=== PATIENT | male | born 1960 | race Hispanic/Latino ===

== ENCOUNTER 2018-03-08 05:48 | Day surgery (SDC) | payer BC ==
[2018-03-08] MEDS ORDERED: ANCEF/STERILE WATER 2 GM/20 ML 2 GM/20 ML SYRINGE IV NR (06:00)
[2018-03-08] MEDS ORDERED: NACL 0.9% 1000 ML 1,000 ML IV SCH (06:00)
[2018-03-08 06:58] LABS: Basophils # (Auto) 0.1 K/mm3 (0.0-0.1); Basophils % (Auto) 1.1 % (0.0-1.8); Eosinophils # (Auto) 0.2 K/mm3 (0.0-0.4); Eosinophils % (Auto) 3.2 % (0.0-4.3); Hematocrit 43.3 % (35.5-45.6); Lymphocytes # (Auto) 2.6 K/mm3 (1.2-5.4); Lymphocytes % (Auto) 37.5 % (13.4-35.0); Mean Corpuscular HGB Conc 35 % (32-34); Mean Corpuscular Hemoglobin 30 pg (28-32); Mean Corpuscular Volume 87 fl (84-94); Monocytes # (Auto) 0.6 K/mm3 (0.0-0.8); Monocytes % (Auto) 9.1 % (0.0-7.3); Platelet Count 220 K/mm3 (140-440); Red Blood Count 4.99 M/mm3 (3.65-5.03); Red Cell Distribution Width 14.1 % (13.2-15.2)
[2018-03-08 07:08] LABS: INR 0.85 (0.87-1.13)
[2018-03-08 07:09] LABS: Partial Thromboplastin Time 26.4 Sec. (24.2-36.6)
[2018-03-08 07:13] LABS: BUN/Creatinine Ratio 28; Blood Urea Nitrogen 22 mg/dL (9-20); Calcium 8.8 mg/dL (8.4-10.2); Hemolysis Index 18
[2018-03-08] MEDS ORDERED: HEPARIN/NS 5000 UNIT/500ML(CATH LAB) 1,000 ML IR ONE (08:36)
[2018-03-08] MEDS ORDERED: ANCEF/STERILE WATER 2 GM/20 ML 2 GM/20 ML SYRINGE IV ONE (08:37)
[2018-03-08] MEDS ORDERED: HEPARIN 10,000 UNITS/10 ML ONE (08:37)
[2018-03-08] MEDS: VERSED ONE ×4 (08:49→09:40)
[2018-03-08] MEDS: XYLOCAINE 2% INFILTRATI ONE ×2 (08:49→09:09)
[2018-03-08] MEDS: SUBLIMAZE ONE ×4 (08:49→09:40)
[2018-03-08] MEDS ORDERED: NORCO 5/325 PO PRN (10:15)
[2018-03-08] MEDS ORDERED: PLAVIX PO ONE (10:20)
--- NOTE | 2018-03-08 10:21 | Short Stay Summary ---
Short Stay Documentation Date of service: 03/08/18 - History H&P: obtained from office Past Surgical History: Other - Allergies and Medications Current Medications: Allergies No Known Allergies Allergy (Unverified 03/08/18 05:48) Home Medications Medication Instructions Recorded Confirmed Last Taken Type Aspirin [Lo-Dose Aspirin EC] 81 mg PO DAILY 03/08/18 03/08/18 03/07/18 History Celecoxib 200 mg PO DAILY PRN 03/08/18 03/08/18 03/07/18 History Losartan Potassium 50 mg PO DAILY 03/08/18 03/08/18 03/08/18 03:30 History Active Medications Acetaminophen/Hydrocodone Bitart ([facility] 7.5/325) 1 each PO Q4H PRN PRN Reason: Pain, Moderate (4-6) Clopidogrel Bisulfate (Plavix) 300 mg PO ONCE ONE Stop: 03/08/18 10:16 Cefazolin Sodium (Ancef/Sterile Water 2 Gm/20 Ml) 2 gm in 20 mls @ 80 mls/hr IV PREOP NR; Protocol Stop: 03/08/18 23:59 Sodium Chloride (Nacl 0.9% 1000 Ml) 1,000 mls @ 42 mls/hr IV DIRECT SHREYAS Last Admin: 03/08/18 07:41 Dose: 42 mls/hr - Brief post op/procedure progress note Date of procedure: 03/08/18 Pre-op diagnosis: chronic ischemia of left LE with severe claudication Post-op diagnosis: same Procedure: utrasound guided access bilaterally common femoral artery aortogram bilateral iliac stenting Anesthesia: MAC Findings: 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
--- NOTE | 2018-03-08 11:14 | Operative Report ---
Operative Report Operative Report: Operative note: Date: 03/08/2018 Preoperative diagnosis: Left leg ischemia with short distance claudication Postoperative diagnosis: Same. Operation: Bilateral ultrasound-guided common femoral access. Aortogram. Bilateral common iliac stenting Surgeon: Lili Vergara. Asst.: None Anesthesia: Moderate Sedation. 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 This included dictation was minimal distance. She initially was seen by spine surgeon and had spine surgery that didn't relieve his symptoms. Subsequently his came to vascular surgery office. She had monophasic distal PT on the left side. She underwent ABIs with arterial duplex that showed left leg 0.5 and high velocity in the left common iliac. He was discussed risks, benefits and alternatives of procedure: Iliac stenting. He agreed and signed informed consent. Operative details: Patient was brought to the [facility] and placed in supine position. His multiple groins were prepped and draped in sterile fashion. Timeout was performed. Under ultrasound guidance initially left common femoral artery was accessed with micropuncture needle after local anesthetic injection. It was changed to micropuncture sheath in the usual standard fashion and Sotom[place]or wire was attempted to cross, iliac lesion unsuccessful. The wire, however, had enough purchase pushing exchanged and micropuncture sheath was exchanged to 5 Angolan access sheath. Advantage wire was then placed inside the sheath and using a vertebral catheter was maneuvered through the occlusion into aorta. A vertebral catheter was changed to Omni Flush catheter and angiograms of distal infrarenal aorta and bilateral common iliac arteries were performed. 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 This will require placement of stent proximally and therefore this would need kissing stents. At this point right common femoral access was gained under continuous ultrasound guidance was micropuncture needle in the same fashion as the contralateral side. It was exchanged to 5 Angolan access sheath. Proximal pigtail was placed just above bifurcation through left side and under magnification angiogram performed marking proximal and distal landing zone and calculating stent length. Patient was heparinized with 5000 units heparin. Bilaterally 5 Angolan access sheath were changed to 7 Angolan short sheath on the right and 23 cm access sheath 7 Angolan on the left. A Viabahn VBX stents were positioned bilaterally. 8x 38 stent positioned on the right and 8x 59 on the right. Those were deployed simultaneously in a kissing fashion. Post stent placement angiogram showed excellent apposition and no residual stenosis. Excess sites were closed using 6 Angolan Proglides. Patient tolerated procedure well and was transferred to PACU in stable condition.
[2018-03-08 12:27] VITALS: BP 110/77
== END 2018-03-08 12:20 | disposition home or self-care (01) ==
LOC: CATHLABREC 05:48
PROVIDERS: ATTEND Surgery Vascular Surgery
DX: I70.212 Atherosclerosis of native arteries of extremities with intermittent claudication, left leg (principal); I99.8 Other disorder of circulatory system; I10 Essential (primary) hypertension; M19.90 Unspecified osteoarthritis, unspecified site; F17.200 Nicotine dependence, unspecified, uncomplicated; Z79.82 Long term (current) use of aspirin; Z79.899 Other long term (current) drug therapy; Z98.890 Other specified postprocedural states
CPT/HCPCS: 36415; 37221; 75716; 80048; 85025; 85610; 85730; 99156; 99157; C1751; C1760; C1769; C1887; C1894; J0690; J1644; J2250; J3010; J7030; Q9967